=== PATIENT | female | born 1945 | race Caucasian/White ===

== ENCOUNTER 2018-06-03 11:43 | Outpatient (CLI) | payer MEDICARE, OTHER | END 2018-06-03 23:59 | disposition home or self-care (01) | LOC: CFH 11:43 | PROVIDERS: ATTEND Family Medicine | DX: M81.8 Other osteoporosis without current pathological fracture (principal); N63.0 Unspecified lump in unspecified breast; N95.9 Unspecified menopausal and perimenopausal disorder | CPT/HCPCS: 77066; 77080; G0279 ==

== ENCOUNTER → 2019-08-19 | Outpatient (CLI) | payer MEDICARE, OTHER | END | disposition home or self-care (01) | LOC: CFH 11:44 | PROVIDERS: ATTEND Specialist | DX: Z12.31 Encounter for screening mammogram for malignant neoplasm of breast (principal) | CPT/HCPCS: 77063; 77067 ==

== ENCOUNTER → 2020-01-16 | Outpatient (CLI) | payer MEDICARE, OTHER ==
[~2020-01-16] MED LIST: ALEN70TA66 PO; CHOL10003 PO; CITRACAL PO; CRAN500T2 PO; LECI1200 PO; LISI-170 PO; OCUVITE; OPTIMIZED FOLATE PO; QUINOL PO; RIZA10TA92 PO; ROSU40TA PO; SERT50TA28 PO; VALA500T8 PO; VITAMIN B12 PO; [UNRECOGNIZED DRUG - OTHER] PO
[2020-01-16 16:43] LABS: ALANINE AMINOTRANSFERASE 35 U/L (12-78); ALBUMIN 3.8 g/dL (3.4-5.0); ANION GAP 3 mmol/L (5-15); CHLORIDE 98 mmol/L (98-107); CREATININE 0.61 mg/dL (0.55-1.02)
[2020-01-16 16:45] LABS: ALKALINE PHOSPHATASE 77 U/L (45-117); BILIRUBIN,TOTAL 0.4 mg/dL (0.2-1.0); TOTAL PROTEIN 7.8 g/dL (6.4-8.2)
[2020-01-16 16:54] LABS: BASOPHILS % (AUTO) 1 % (0-1); EOSINOPHILS % (AUTO) 1 % (1-7); LYMPHOCYTES % (AUTO) 32 % (22-44); MEAN CORPUSCULAR HEMOGLOBIN 33.7 pg (27.0-34.8); MEAN CORPUSCULAR HGB CONC 32.8 g/dL (32.4-35.8); MEAN PLATELET VOLUME 7.8 fL (7.4-10.4); MONOCYTES % (AUTO) 12 % (2-9); NEUTROPHILS % (AUTO) 55 % (42-75); PLATELET COUNT 237 x10^3/uL (130-400); RED BLOOD COUNT 3.99 x10^6/uL (3.82-5.3)
[2020-01-16 17:40] LABS: MD MORPH REVIEW ONLY
[2020-01-16 17:41] LABS: OVALOCYTES 1+
[2020-01-16 17:42] LABS: <PLATELET ESTIMATE> ADEQUATE; <PLT MORPHOLOGY> NORMAL PLT MORPH
== END | disposition home or self-care (01) ==
LOC: STAR 15:03
PROVIDERS: ATTEND Obstetrics & Gynecology
DX: Z01.812 Encounter for preprocedural laboratory examination (principal); Z20.828 Contact with and (suspected) exposure to other viral communicable diseases; I51.7 Cardiomegaly
CPT/HCPCS: 36415; 71046; 80053; 85025; 87635; 93005

== ENCOUNTER 2020-01-21 09:48 | Day surgery (SDC) | payer MEDICARE, OTHER ==
[~2020-01-21] VITALS: Ht 167.6 cm; Wt 69.5 kg
[~2020-01-21 09:48] MED LIST changes: +EPHEDRINE 50 MG/ML, 1ML IVPush PRN; +FENTANYL PF 100 MCG/2ML IV PRN; +HYDROmorphone 1 MG/ML, 1ML INJ IVPush PRN; +LABETALOL 5MG/ML, 20ML IV PRN; +ONDANSETRON 2MG/ML, 2ML IVPush PRN; +OXYcodone 5 MG/5 ML ORAL.SOL UDC PO PRN; +PROMETHAZINE 25 MG/ML, 1ML IVPush PRN
[2020-01-21] MEDS ORDERED: ACETAMINOPHEN 500 MG TABLET PO ONE (10:30)
[2020-01-21] MEDS ORDERED: CHLORHEXIDINE 15 ML UDC MM ONE (10:30)
[2020-01-21 10:36] VITALS: BP 145/86
[2020-01-21] MEDS: LACTATED RINGERS 1,000 ML IV SCH ×2 (10:40→10:47)
[2020-01-21] MEDS ORDERED: SODIUM CHLORIDE 0.9% 100 ML ONE (11:36)
[2020-01-21] MEDS ORDERED: VASOPRESSIN 20 UNIT/ML, 1ML ONE (11:36)
[2020-01-21] MEDS ORDERED: BUPIVACAINE/PF 0.25% ONE (12:36)
[2020-01-21] MEDS ORDERED: SILVER NITRATE STICK TP ONE (12:36)
[2020-01-21] MEDS ORDERED: EPINEPHRINE 1 MG/ML, 1ML ONE (12:37)
[2020-01-21] MEDS ORDERED: FENTANYL PF 100 MCG/2ML ONE (13:12)
[2020-01-21] MEDS ORDERED: PROPOFOL 10 MG/ML, 20ML ONE (13:13)
[2020-01-21] MEDS ORDERED: KETOROLAC 30 MG/1 ML ONE (13:58)
[2020-01-21] MEDS ORDERED: ONDANSETRON 2MG/ML, 2ML ONE (13:58)
[2020-01-21] MEDS ORDERED: DEXAMETHASONE 4 MG/ML, 1ML ONE ×2 (13:58→13:59)
[2020-01-21] MEDS ORDERED: DIPHENHYDRAMINE 50 MG/ML, 1ML ONE (13:59)
== END 2020-01-21 17:00 | disposition home or self-care (01) ==
LOC: OUT 09:48
PROVIDERS: ATTEND Obstetrics & Gynecology
DX: N87.1 Moderate cervical dysplasia (principal); I10 Essential (primary) hypertension; E78.5 Hyperlipidemia, unspecified; G43.909 Migraine, unspecified, not intractable, without status migrainosus; F32.9 Major depressive disorder, single episode, unspecified; Z79.899 Other long term (current) drug therapy; Z88.2 Allergy status to sulfonamides; Z88.8 Allergy status to other drugs, medicaments and biological substances; Z91.040 Latex allergy status; Z98.51 Tubal ligation status
CPT/HCPCS: 57520; 88305; 88307; J0171; J1100; J1200; J1885; J2405; J2704; J3010; J7120

== ENCOUNTER → 2020-08-19 | Outpatient (CLI) | payer MEDICARE, OTHER ==
[~2020-08-19] MED LIST changes: -ALEN70TA66 PO; +ALEN70TA77 PO; -CRAN500T2 PO; +CRAN500T3 PO; -EPHEDRINE 50 MG/ML, 1ML IVPush PRN; -FENTANYL PF 100 MCG/2ML IV PRN; -HYDROmorphone 1 MG/ML, 1ML INJ IVPush PRN; -LABETALOL 5MG/ML, 20ML IV PRN; -LECI1200 PO; -ONDANSETRON 2MG/ML, 2ML IVPush PRN; -OXYcodone 5 MG/5 ML ORAL.SOL UDC PO PRN; -PROMETHAZINE 25 MG/ML, 1ML IVPush PRN; +[UNRECOGNIZED DRUG - CODE] PO
== END | disposition home or self-care (01) ==
LOC: CFH 10:50
PROVIDERS: ATTEND Obstetrics & Gynecology
DX: Z12.31 Encounter for screening mammogram for malignant neoplasm of breast (principal); M81.0 Age-related osteoporosis without current pathological fracture; M85.80 Other specified disorders of bone density and structure, unspecified site
CPT/HCPCS: 77063; 77067; 77080